=== PATIENT | female | born 1945 | race Caucasian/White ===

== ENCOUNTER 2017-05-21 05:37 | Observation (INO) | payer MEDICARE, BC ==
[2017-05-21] MEDS ORDERED: ROCURONIUM 50 MG INJ ×2 (07:00→07:21)
[2017-05-21] MEDS ORDERED: PROPOFOL 1000 MG INJ (07:00)
[2017-05-21] MEDS ORDERED: ROPIVACAINE 0.5 % 30 ML VIAL (07:00)
[2017-05-21] MEDS ORDERED: THROMBIN 5000 UNIT VIAL (07:15)
[2017-05-21] MEDS ORDERED: CA CHLORIDE 10% 10 ML SYRINGE (07:16)
[2017-05-21] MEDS ORDERED: POVIDONE IODINE 10% 28.4 GM OINT (07:16)
[2017-05-21] MEDS ORDERED: PROPOFOL 20 ML (07:21)
[2017-05-21] MEDS ORDERED: ONDANSETRON 4 MG INJ (07:21)
[2017-05-21] MEDS ORDERED: FENTAnyl 50 MCG/ML VIAL ×3 (07:21→09:59)
[2017-05-21] MEDS ORDERED: CEFAZOLIN 1 GM INJ (07:21)
[2017-05-21] MEDS ORDERED: NEOSTIGMINE 3 MG/3 ML SYRINGE (07:21)
[2017-05-21] MEDS ORDERED: DEXAMETHASONE 4 MG/ML 1 ML INJ (07:21)
[2017-05-21] MEDS ORDERED: MIDAZOLAM 1 MG/ML 2 ML INJ (07:21)
[2017-05-21] MEDS: POLYMYXIN/BACITRACIN 1L IRRIG (08:50)
[2017-05-21] MEDS ORDERED: MIDAZOLAM 1 MG/ML 2 ML INJ IV (09:30)
[2017-05-21] MEDS ORDERED: HYDROmorphONE (0.2 MG/ML) 10ML SYG IV ×3 (09:30)
[2017-05-21] MEDS ORDERED: TRIMETHOBENZAMIDE 100 MG/ML VIAL IM (09:30)
[2017-05-21] MEDS ORDERED: OXYCODONE/ACETAMINOPHEN (5/325) TAB PO ×2 (09:30)
[2017-05-21] MEDS ORDERED: FENTAnyl 50 MCG/ML VIAL IV ×3 (09:30)
[2017-05-21] MEDS ORDERED: ALBUTEROL 0.083% (NEB) 2.5 MG/3 ML AMP HHN (09:30)
[2017-05-21] MEDS ORDERED: MEPERIDINE 25 MG INJ IV (09:30)
[2017-05-21] MEDS ORDERED: IPRATROPIUM (NEB) 0.5 MG/2.5 ML AMP HHN (09:30)
[2017-05-21] MEDS ORDERED: hydrALAzine 20 MG INJ IV (09:30)
[2017-05-21] MEDS ORDERED: DIPHENHYDRAMINE 50 MG INJ IV (09:30)
[2017-05-21] MEDS ORDERED: EPHEDrine SULFATE 50 MG/5 ML SYG IV (09:30)
[2017-05-21] MEDS ORDERED: LABETALOL HCL 20MG INJ IV (09:30)
[2017-05-21] MEDS: ROPIVACAINE 0.5 % 30 ML VIAL (11:20)
[2017-05-21] MEDS ORDERED: SUGAMMADEX SODIUM 200 MG/2 ML VIAL IV (11:21)
[2017-05-21] MEDS: ONDANSETRON 4 MG INJ IV ×2 (11:43→12:20)
[2017-05-21] MEDS ORDERED: METOCLOPRAMIDE 10 MG INJ (11:48)
[2017-05-21] MEDS ORDERED: ONDANSETRON 4 MG INJ IV (12:00)
[2017-05-21] MEDS ORDERED: DIPHENHYDRAMINE 25 MG CAP PO (12:00)
[2017-05-21] MEDS ORDERED: morphine 10 MG INJ IV (12:00)
[2017-05-21] MEDS ORDERED: BISACODYL 10 MG SUPP PR (12:00)
[2017-05-21] MEDS ORDERED: HYDROmorphONE 0.2 MG/ML PCA (12:14)
[2017-05-21] MEDS: HYDROmorphONE 0.2 MG/ML PCA IV (12:19)
[2017-05-21] MEDS: METOCLOPRAMIDE 10 MG INJ IV (12:22)
[2017-05-21] MEDS: SOD CHLORIDE 0.9% 1,000 ML IV (13:49)
[2017-05-21] MEDS: CEFAZOLIN 1 GM/50 ML (PMX) 50 ML IVPB ×2 (13:51→21:36)
[2017-05-21] MEDS ORDERED: CEFAZOLIN 1 GM INJ IV (15:00)
[2017-05-21] MEDS: ATORVASTATIN 20 MG TAB PO (20:41)
[2017-05-21] MEDS: SENNA/DOCUSATE NA (8.6MG/50MG) TAB PO (20:41)
[2017-05-21] MEDS: TOBRAMYCIN 0.3% 3.5 GM OPH OINT LEFT EYE (20:41)
[2017-05-22] MEDS: SOD CHLORIDE 0.9% 1,000 ML IV ×2 (03:23→13:00)
[2017-05-22] MEDS: CEFAZOLIN 1 GM/50 ML (PMX) 50 ML IVPB ×2 (05:36→14:00)
[2017-05-22] MEDS: LEVOTHYROXINE 150 MCG TAB PO (06:31)
[2017-05-22] MEDS: SENNA/DOCUSATE NA (8.6MG/50MG) TAB PO (09:02)
[2017-05-22] MEDS: METOPROLOL (XL) 25 MG TAB PO (09:02)
[2017-05-22] MEDS: HYDROCHLOROTHIAZIDE 12.5 MG CAP PO (09:02)
[2017-05-22] MEDS: OXYCODONE/ACETAMINOPHEN (5/325) TAB PO ×2 (09:03→14:50)
[2017-05-22] MEDS ORDERED: RIVAROXABAN 10 MG TABLET PO (17:55)
[2017-05-23] MEDS ORDERED: MAGNESIUM HYDROXIDE 30ML CUP PO (21:00)
== END 2017-05-22 15:20 | disposition home or self-care (01) ==
LOC: SDS 05:37 → REC 12:09 → MS1 12:50
DX: M19.071 Primary osteoarthritis, right ankle and foot (principal); M25.771 Osteophyte, right ankle; I10 Essential (primary) hypertension; E03.9 Hypothyroidism, unspecified; Z87.891 Personal history of nicotine dependence
CPT/HCPCS: 29898; 73610-RT; 97110; 97116; 97163; 97530; 99217